=== PATIENT | female | born 1950 | race Caucasian/White ===

== ENCOUNTER 2016-08-02 15:52 | Emergency (ER) | payer BC, MEDICARE ==
[2016-08-02 16:09] VITALS: BP 120/71
--- NOTE | 2016-08-02 16:43 | UC ---
Lower Extremity/Ankle HPI - HPI Summary HPI Summary: Tripped while jumping over a fence yesterday, landed on L foot with rolled ankle. Is bearing weight with significant pain today. No hx of surgery in that foot. Is leaving for [employer] tomorrow for 3 months. - History of Current Complaint Chief Complaint: UCSkin Stated Complaint: TICK BITE Time Seen by Provider: 08/02/16 16:17 Hx Obtained From: Patient ?: No Onset/Duration: Sudden Onset Severity Initially: Moderate Severity Currently: Moderate Aggravating Factor(s): Standing, Ambulation Alleviating Factor(s): Rest, Elevation Able to Bear Weight: Yes - Allergies/Home Medications Allergies/Adverse Reactions: Allergies Allergy/AdvReac Type Severity Reaction Status Date / Time No Known Allergies Allergy Verified 08/02/16 16:09 PMH/Surg Hx/FS Hx/Imm Hx Previously Healthy: Yes - Surgical History Surgical History: Yes Surgery Procedure, Year, and Place: c section x3. hysterectomy - Family History Known Family History: Negative: Blood Disorder - Social History Lives: With Family Alcohol Use: Occasionally Substance Use Type: None Smoking Status (MU): Never Smoked Tobacco Review of Systems Constitutional: Negative Skin: Negative Eyes: Negative ENT: Negative Respiratory: Negative Cardiovascular: Negative Gastrointestinal: Negative Genitourinary: Negative Motor: Negative Neurovascular: Negative Musculoskeletal: Arthralgia - L foot Neurological: Negative Psychological: Negative All Other Systems Reviewed And Are Negative: Yes Physical Exam Triage Information Reviewed: Yes Vital Signs: Initial Vital Signs Temp 99.3 F 08/02/16 16:06 Pulse 64 08/02/16 16:06 Resp 16 08/02/16 16:06 BP 120/71 08/02/16 16:06 Pulse Ox 99 08/02/16 16:06
--- NOTE | 2016-08-02 16:48 | UC ---
Skin Complaint HPI - HPI Summary HPI Summary: Scratched spot off up R upper back/shoulder, brought product in with plastic bag , pt is concerned about tick. Area bled a bit. - History of Current Complaint Chief Complaint: UCSkin Time Seen by Provider: 08/02/16 16:17 Stated Complaint: TICK BITE Hx Obtained From: Patient ?: No Onset/Duration: Sudden Onset Onset Severity: Mild Current Severity: Mild Location: Discrete Aggravating: Nothing Alleviating: Nothing Associated Signs & Symptoms: Positive: Negative - Allergy/Home Medications Allergies/Adverse Reactions: Allergies Allergy/AdvReac Type Severity Reaction Status Date / Time No Known Allergies Allergy Verified 08/02/16 16:09 Review of Systems Constitutional: Negative Skin: Other - hard spot on skin Eyes: Negative ENT: Negative Respiratory: Negative Cardiovascular: Negative Gastrointestinal: Negative Genitourinary: Negative Motor: Negative Neurovascular: Negative Musculoskeletal: Negative Neurological: Negative Psychological: Negative All Other Systems Reviewed And Are Negative: Yes PMH/Surg Hx/FS Hx/Imm Hx Previously Healthy: Yes - Surgical History Surgical History: Yes Surgery Procedure, Year, and Place: c section x3. hysterectomy - Family History Known Family History: Negative: Blood Disorder - Social History Lives: With Family Alcohol Use: Occasionally Substance Use Type: None Smoking Status (MU): Never Smoked Tobacco Physical Exam Triage Information Reviewed: Yes Appearance: Well-Appearing, No Pain Distress, Well-Nourished Vital Signs: Initial Vital Signs Temp 99.3 F 08/02/16 16:06 Pulse 64 08/02/16 16:06 Resp 16 08/02/16 16:06 BP 120/71 08/02/16 16:06 Pulse Ox 99 08/02/16 16:06 Vital Signs Reviewed: Yes Eye Exam: Normal Eyes: Positive: Conjunctiva Clear ENT Exam: Normal ENT: Positive: Normal ENT inspection, Hearing grossly normal, Pharynx normal, TMs normal Dental Exam: Normal Neck exam: Normal Neck: Positive: Supple, Nontender, No Lymphadenopathy Respiratory Exam: Normal Respiratory: Positive: Chest non-tender, Lungs clear, Normal breath sounds, No respiratory distress, No accessory muscle use Cardiovascular Exam: Normal Cardiovascular: Positive: RRR, No Murmur Musculoskeletal Exam: Normal Neurological Exam: Normal Neurological: Positive: Alert Psychological Exam: Normal Skin Exam: Other - abrasion with dried blood on R upper back. Bit scratched off by patient examined, no legs or foster/brown body noted. Only irreg black spot approx 3mm x 3mm consistent with a scab. Course/Dx - Diagnoses Provider Diagnoses: skin abrasion. concern for tick bite Discharge - Discharge Plan Condition: Stable Disposition: HOME
== END 2016-08-02 16:54 | disposition home or self-care (01) ==
LOC: UCEAST 15:52
DX: S20.411A Abrasion of right back wall of thorax, initial encounter (principal)
CPT/HCPCS: 99201; G0463